=== PATIENT | male | born 1945 | race Asian ===

== ENCOUNTER 2017-09-21 13:29 | Emergency (ER) | payer OTHER ==
[~2017-09-21] VITALS: Ht 170.2 cm; Wt 92.5 kg
--- NOTE | 2017-09-21 13:35 | NUR ---
BIBRA 79 D/T SYCNOPAL EPISODE AT PMD OFFICE. 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 PATIENT ARRIVED A/OX 4. BREATHING EVEN AND UNLABORED, STILL C/O DIZZINESS. NO SOB, NAD, VITALS STABLE. SAFETY AND COMFORT MEASURES IN PLACE. IV ESTABLISHED CUTTING AND SPLICING SUPERVISOR, INTACT AND PATENT ON LEFT HAND, 20G. AWAITING MD ORDERS.
[2017-09-21 13:48] LABS: BASOPHILS # (AUTO) 0.1 /CMM (0.0-0.2); BASOPHILS % (AUTO) 0.8 % (0.0-2.0); EOSINOPHILS # (AUTO) 0.6 /CMM (0.0-0.7); HEMATOCRIT 35 % (39-51); LYMPHOCYTES # (AUTO) 4.2 /CMM (0.8-4.8); LYMPHOCYTES % (AUTO) 52.4 % (20.0-44.0); MEAN CORPUSCULAR HEMOGLOBIN 29 PG (26.0-33.0); MEAN CORPUSCULAR HGB CONC 35 g/dl (31.0-36.0); MEAN CORPUSCULAR VOLUME 84 fL (80-96); MONOCYTES # (AUTO) 0.7 /CMM (0.1-1.30); MONOCYTES % (AUTO) 8.8 % (2.0-12.0); NEUTROPHILS # (AUTO) 2.5 /CMM (1.8-8.9); PLATELET COUNT (AUTO) 169 /CMM (150-450); RDW COEFFICIENT OF VARIATION 13.6 (11.5-15.0); RED BLOOD CELL COUNT(AUTO) 4.17 MIL/uL (4.5-6.0); WHITE BLOOD COUNT (AUTO) 7.9 K/uL (4.3-11.0)
[2017-09-21 13:59] LABS: CALCIUM, SERUM 8.1 mg/dL (8.5-10.1); CARBON DIOXIDE 25 mmol/L (21-32); CHLORIDE 102 mmol/L (98-107); CREATININE 1.4 mg/dL (0.6-1.3); GLUCOSE 153 mg/dL (74-106); POTASSIUM 3.9 mmol/L (3.5-5.1); SODIUM SERUM 137 mmol/L (136-145); UREA NITROGEN, BLOOD 16 mg/dL (7-18)
[2017-09-21] MEDS ORDERED: IV NS 0.9% 500 ML BAG IV ONE (14:00)
--- NOTE | 2017-09-21 14:06 | NUR ---
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
[2017-09-21 14:08] LABS: TROPONIN I < 0.017 ng/mL (0.00-0.056)
--- NOTE | 2017-09-21 14:36 | NUR ---
PATIENT TAKEN TO HEAD CT VIA STRETCHER.
--- NOTE | 2017-09-21 15:03 | NUR ---
CALLED [facility], PRESENTED PT, AWAITING CALL BACK FROM [facility]
[2017-09-21] MEDS ORDERED: ATEN25TA PO (15:06)
[2017-09-21] MEDS ORDERED: VIT1CAPS9 PO (15:06)
[2017-09-21] MEDS ORDERED: IBUP-1957 PO (15:06)
[2017-09-21] MEDS ORDERED: ATOR40TA PO (15:06)
[2017-09-21] MEDS ORDERED: B CO1TAB6 PO (15:06)
[2017-09-21] MEDS ORDERED: OMEG1CAP55 PO (15:06)
[2017-09-21] MEDS ORDERED: ISOS30TA6 PO (15:06)
[2017-09-21] MEDS ORDERED: AMLO5TAB2 PO (15:06)
[2017-09-21] MEDS ORDERED: GLIP5TAB13 PO (15:06)
[2017-09-21] MEDS ORDERED: GLUC1TAB PO (15:06)
[2017-09-21] MEDS ORDERED: LOSA25TA13 PO (15:06)
[2017-09-21] MEDS ORDERED: ATEN50TA PO (15:06)
[2017-09-21] MEDS ORDERED: ASPI-1169 PO (15:06)
[2017-09-21] MEDS ORDERED: PRAZ5CAP2 PO (15:06)
[2017-09-21] MEDS ORDERED: FLUT16SP NS (15:06)
[2017-09-21] MEDS ORDERED: OMEP20CA10 PO (15:11)
[2017-09-21] MEDS ORDERED: TRAM50TA2 PO (15:11)
--- NOTE | 2017-09-21 15:11 | NUR ---
CALLED JANE CHACON, INFORMED GUIDE EXCURSION THAT FAMILY IS REQUESTING TO GO TO [facility] , SHE SAID THEY WILL TRY THERE BUT IT IS VERY IMPACTED EVERYWHERE RIGHT NOW SO THEY WILL TRY THEIR BEST.
[2017-09-21] MEDS ORDERED: OXYB5TAB11 PO (15:16)
--- NOTE | 2017-09-21 15:44 | NUR ---
RECEIVED CALL FROM [facility], PT ACCEPTED TO [facility] BY , NUMBER TO GIVE REPORT IS [phone], [facility] SHOULD ARRIVE HERE BY [phone].
--- NOTE | 2017-09-21 15:49 | NUR ---
REPORT GIVEN TO CASSI BOOTH FOR [facility] UPON TRANSFER.
[2017-09-21] MEDS ORDERED: ASPIRIN 81 MG TAB.CHEW PO ONE (16:00)
[2017-09-21] MEDS ORDERED: ASPIRIN 81 MG TAB.CHEW ONE (16:16)
--- NOTE | 2017-09-21 16:20 | NUR ---
Patient discharged to [facility] GOING TO [facility] in stable condition. Written and verbal after care instructions given. Patient verbalizes understanding of instruction.
[2017-09-21 16:28] VITALS: BP 138/69
== END 2017-09-21 16:31 | disposition short-term general hospital (02) ==
LOC: ER 13:32
DX: G45.9 Transient cerebral ischemic attack, unspecified (principal); D64.9 Anemia, unspecified; E11.9 Type 2 diabetes mellitus without complications; E78.5 Hyperlipidemia, unspecified; I10 Essential (primary) hypertension; I25.10 Atherosclerotic heart disease of native coronary artery without angina pectoris; I70.0 Atherosclerosis of aorta; K21.9 Gastro-esophageal reflux disease without esophagitis; Z79.82 Long term (current) use of aspirin; Z79.84 Long term (current) use of oral hypoglycemic drugs; Z98.890 Other specified postprocedural states
CPT/HCPCS: 36415; 70450; 71045; 80048; 82962; 84484; 85025; 93005; 99285; A4606; J7040; Z7610